=== PATIENT | male | born 1970 | race Caucasian/White ===

== ENCOUNTER 2023-12-10 10:16 | Observation (INO) ==
--- NOTE | 2023-11-11 16:08 | PAT Medication Instructions ---
Medication Instructions Date of Service November 11, 2023 Home Medications atorvastatin 10 mg tablet 10 mg PO QAM celecoxib 200 mg capsule (Celebrex) 200 mg PO QAM losartan 50 mg tablet 50 mg PO QAM pantoprazole 40 mg tablet,delayed release 40 mg PO QAM ASK your surgeon for instructions celecoxib 200 mg capsule (Celebrex) 200 mg PO QAM DO NOT take the morning of surgery losartan 50 mg tablet 50 mg PO QAM Take morning of surgery With a small sip of water, OTHERWISE NOTHING TO EAT OR DRINK AFTER MIDNIGHT: atorvastatin 10 mg tablet 10 mg PO QAM pantoprazole 40 mg tablet,delayed release 40 mg PO QAM Other Notes If you have any questions please call us at [phone] or [phone] or [phone] or [phone]
--- NOTE | 2023-11-15 10:04 | Anesthesiology Consultation ---
Date of Service November 15, 2023 Assessment & Plan (1) Encounter for pre-operative examination: Chart Review Chart Review: Acceptable Risk for Surgery and Patient seen in Pre Admission Testing Per patient- 5-6 beers/evening Pt currently scheduled as 23 hours observation. If surgeon decides to change patient to Same Day Joint, patient would be acceptable risk for TKA, pending patient is motivated, has good support and surgeon's office completes [facility] preop requirements (Discussed with Dr. Mcgill). Per PAT appt on 11/15/23, no recent illness/disease exposures, illness related symptoms, or recent illness/disease positive tests. Will leave to surgeon's discretion if preop Covid testing needed Teaching & Discussion Pre-Anesthesia Teaching/Discussion Notes: Instructed NPO after midnight before surgery,except medications with 15 cc of water. Medication instructions provided according to the PAT guidelines. History Surgery Operation Date: 12/10/23 12:30 Proposed Procedures p Left Total Knee Arthroplasty - Domenic Duran MD Height/Weight Height: 5 ft 11 in Weight: 84.4 kg Allergies Allergy/AdvReac Type Severity Reaction Status Date / Time MELISSA Inhibitors Allergy Severe Cough Verified 11/11/23 15:10 Medications Home Medications Medication Instructions Recorded Confirmed Last Taken atorvastatin 10 mg tablet 10 mg PO QAM 11/07/23 11/11/23 Unknown celecoxib 200 mg capsule (Celebrex) 200 mg PO QAM 11/07/23 11/11/23 Unknown losartan 50 mg tablet 50 mg PO QAM 11/07/23 11/11/23 Unknown pantoprazole 40 mg tablet,delayed 40 mg PO QAM 11/07/23 11/11/23 Unknown release Past Medical History Medical History GERD (gastroesophageal reflux disease) well controlled and stable with Protonix High cholesterol Hypertension Left knee DJD Exercise / Class Metabolic Activity II 4-5 Yardwork/Stairs/Walk up hill (one flight of stairs - no chest pain or SOB ) Past Surgical History Surgical History History of ankle surgery right History of back surgery laser spinal surgery low back, 5 years ago Past Anesthesia History No Hx of Anesthesia Complications (with exception to mild constipation post op ) and No Family Hx of Anesthesia Complications History of PONV No Hx of PONV and No Hx of Motion Sickness Social History Smoking Status: Never smoker Do You Dip or Chew Tobacco: Yes (1.5 cans per day- advised) Hx Alcohol Use: Yes Alcohol type: beer alcohol intake frequency: 0-2 drinks per day (5-6 beer /day (usually in the evening after work)) Hx Substance Use: No substance use type: does not use Review of Systems - Occ extra heart beats - occurs every few months- lasts seconds- no issues x six months - Hx of snoring- no hx of sleep study Patient denies chest pain, shortness of breath, dyspnea on exertion, cough, wheezing. No hx of seizures, stroke, [place]. No hx of blood clots or blood transfusions Physical Exam Vital Signs VITALS BP 146/80 P 82 TEMP 98.5 SP02 97% RESP 16 Constitutional no acute distress ENMT Mouth: no TMJ clicking Thyromental Distance: > or= 3.5 Finger Breadths (3.5) Mallampati Class: II Neck neck extension not limited Respiratory normal respiratory effort; no respiratory distress Auscultation: lungs clear to auscultation bilaterally; no wheezes Cardiovascular Rate/Rhythm: regular rate and regular rhythm Heart Sounds: no murmur Vessels: no carotid bruit Musculoskeletal Spine: no pain with cervical ROM Extremities: extremities normal to inspection Psychiatric Orientation: alert Lab Results Anesthesia Preop Results Results Anesthesia Widget: WBC 5.89 K/ul (4.8-10.8) 11/15/23 Hgb 13.3 g/dl (14.0-18.0) L 11/15/23 Hct 39.9 % (42.0-52.0) L 11/15/23 Plt 223 K/uL (130-400) 11/15/23 Na 141 mmol/L (136-145) 11/15/23 K 4.6 mmol/L (3.5-5.1) 11/15/23 Cl 106 mmol/L (98-107) 11/15/23 CO2 28 mmol/L (21-32) 11/15/23 BUN 17 mg/dl (6-23) 11/15/23 Creat 1.14 mg/dl (0.6-1.4) 11/15/23 Glucose Level 91 mg/dl (70-99(Fasting)) 11/15/23 PT 10.7 Seconds (9.0-12.0) 11/15/23 PTT 27 Seconds (21-31) 11/15/23 INR 1.0 (0.9-1.1) 11/15/23 Blood Type AB Positive 11/15/23 Antibody Screen NEGATIVE 11/15/23 Testing Electrocardiogram Date: 11/15/23 Findings: + NSR @ (76bpm) Normal EKG per cardio Chest X-Ray Date: 11/15/23 Findings: + NAD FINDINGS: Lung volumes are normal. Lungs are clear. There is no pneumothorax or pleural effusion. Cardiac size is normal. Mediastinal contours are normal. There is no evidence for pulmonary edema
--- NOTE | 2023-12-07 08:50 | History & Physical Report ---
Date of Service December 07, 2023 Assessment & Plan (1) Left knee DJD: 53-year-old gentleman with history of 2 knee arthroscopies in the past with advanced medial compartment arthritis. He is failed conservative treatment and symptoms progressed over the past year. He would like to have his knee fixed. He is having difficulty working the way it is. Plan: Will take him to the operating room and do a left knee replacement. The risks Mente this procedure plan the patient clued but not limited to DVT PE deat h infection neurological injury vascular bleeding palm pain limb range of motion test is fairly with symptoms incomplete relief of symptoms excetra. The patient understands and desires to proceed. Informed consent was obtained. Hopefully we can get a little bit better knee motion and get some of the stiffness that is needed to. He is aware that his age he may need this revised in the future. Will plan on DVT prophylaxis including thigh-high teds, SCDs, aspirin twice a day. He is planning to stay in the hospital overnight and hopefully discharge postop day 1. His can assist in his care. He does have significant alcohol history we may need to use DVT prophylaxis as well. History of Present Illness Chief Complaint: . Left knee pain. Primary Care Provider: Lior Ortiz DO . Patient is a 53-year-old gentleman who presents for surgical treatment of his left knee. Is got a long history of a left knee pain and discomfort. He has a history of about 2 knee arthroscopies once in the s and once in the early done in [place]. After over the past year or so he has developed increased pain discomfort in his knee. His work requires him to do a lot of standing and has had increasing pain and difficulty doing this prickly over the past year. Pain is mostly medial but some global pain. Takes Celebrex with minimal relief. He has had steroid shots which do not help for very long. He is ready to have his knee fixed. It hurts and it stiff. Allergies Allergy/AdvReac Type Severity Reaction Status Date / Time MELISSA Inhibitors Allergy Severe Cough Verified 11/11/23 15:10 Home Medications Medication Instructions Recorded Confirmed Type atorvastatin 10 mg tablet 10 mg PO QAM 11/07/23 11/11/23 History celecoxib 200 mg capsule (Celebrex) 200 mg PO QAM 11/07/23 11/11/23 History losartan 50 mg tablet 50 mg PO QAM 11/07/23 11/11/23 History pantoprazole 40 mg tablet,delayed 40 mg PO QAM 11/07/23 11/11/23 History release Past Med/Surg History Medical History GERD (gastroesophageal reflux disease) well controlled and stable with Protonix High cholesterol Hypertension Left knee DJD Surgical History History of ankle surgery right History of back surgery laser spinal surgery low back, 5 years ago Social History Smoking Status: Never smoker Tobacco Type: Smokeless Tobacco (Dip or Chew) Second Hand Exposure: No; Do You Dip or Chew Tobacco: Yes (1.5 cans per day- advised); Hx Alcohol Use: Yes Alcohol type: beer Hx Substance Use: No Preferred Language: Wolof Grocery Checker Required: No Beliefs That Will Affect Care: None Current Living Situation: Spouse Feels Safe at Home: Yes Assistive Devices: Glasses Review of Systems All systems reviewed & are unremarkable except as noted in HPI & below. Physical Exam . Physical examination reveals patient ambulates independently. Got slight varus alignment to his knee. Walks with just a little limp. He does have a varus thrust with weightbearing. Got bony hypertrophy medially. He is tender with medial joint line. Range of motion about 5 degrees show full extension to about 110 degrees of flexion. His knee is fairly stiff. Is got no particular pain with hip motion. Constitutional WD/WN, vitals as above Neck trachea midline, no thyromegaly Respiratory normal respiratory effort, lungs clear to auscultation Cardiovascular RRR, no murmur, no edema Gastrointestinal (Abdomen) normal bowel sounds, soft, nontender, no hepatosplenomegaly Results & Data Results & Data Laboratory Results . Diagnostic Findings . X-rays left knee were reviewed. Shows advanced medial compartment arthritis. He is got essentially complete loss of his medial joint space on the 40 degree flexion films. Not quite as bad on full extension films. Is got osteophytes primarily medial. A little bit of tibiofemoral subluxation. PG Care Time/CCT Total # of Minutes Spent Total Time Spent with Patient: Total time spent is greater than 50% in coordination of care (as documented) at patient's floor/unit and/or counseling patient: Coding Level of Care Code None Diagnoses Left knee DJD M17.12
[~2023-12-10 10:16] MED LIST: BUPIVACAINE 0.5 % 5 MG/1 ML PF 10ML VIAL ONE; ROPIVACAINE 0.5% 5 MG/ML 30 ML VIAL ONE
[2023-12-10] MEDS ORDERED: BUPIVACAINE 0.25% PF 30 ML VIAL ONE (10:39)
[2023-12-10] MEDS ORDERED: DEXAMETHASONE SOD INJ 4 MG/ML VIAL ONE (10:39)
[2023-12-10] MEDS ORDERED: EPINEPHrine INJ 1 MG/ML AMP ONE (10:39)
--- NOTE | 2023-12-10 10:53 | History & Physical Bridge Note ---
Date of Service December 10, 2023 History & Physical Bridge Note I have examined the patient, reviewed the History & Physical and in the interval since the performance of the History & Physical I have noted the following changes of clinical significance: no changes noted
[2023-12-10] MEDS: ACETAMINOPHEN 500 MG TAB PO SCH ×2 (11:09→19:47)
[2023-12-10] MEDS: FAMOTIDINE 20 MG TAB PO SCH (11:10)
[2023-12-10] MEDS: METOCLOPRAMIDE HCL 10 MG TABLET PO SCH (11:10)
[2023-12-10] MEDS: CeleBREX 200 MG CAP PO SCH (11:10)
[2023-12-10] MEDS: dexAMETHasone**PF** 10 MG/ML VIAL IV SCH (11:10)
[2023-12-10] MEDS: LR 60ML/HR IV SCH (11:12)
[2023-12-10] MEDS: LR 500ML BOLUS, THEN 15ML/HR IV SCH (11:12)
[2023-12-10] MEDS ORDERED: PROMETHAZINE HCL 6.25 MG in SODIUM CHLORIDE 0.9% 50 ML IV PRN (11:13)
[2023-12-10] MEDS ORDERED: ATROPINE SULFATE 0.1 MG/ML 10ML SYR IV PRN (11:13)
[2023-12-10] MEDS ORDERED: ONDANSETRON INJ 2 MG/ML 2 ML VIAL IV PRN ×2 (11:13→15:36)
[2023-12-10] MEDS ORDERED: ePHEDrine sulfate 50 MG/ML AMP IV PRN (11:13)
[2023-12-10] MEDS ORDERED: fentaNYL citrate PF 100 MCG/2 ML VIAL IV PRN (11:13)
[2023-12-10] MEDS: Scopolamine 1 MG TDSY TD SCH (11:16)
[2023-12-10] MEDS ORDERED: MIDAZOLAM HCL 1 MG/ML 2ML VIAL ONE ×2 (11:46→13:49)
[2023-12-10] MEDS ORDERED: fentaNYL citrate PF 100 MCG/2 ML VIAL ONE (11:46)
[2023-12-10] MEDS: ceFAZolin 2000MG 2,000 MG/15 ML SYR IV SCH ×2 (12:43→19:57)
[2023-12-10] MEDS ORDERED: KETAMINE HCL INJ 50 MG/ML 10 ML VIAL ONE (12:55)
[2023-12-10] MEDS ORDERED: GLYCOPYRROLATE 0.2 MG/ML VIAL ONE (13:08)
[2023-12-10] MEDS ORDERED: ONDANSETRON INJ 2 MG/ML 2 ML VIAL ONE (13:08)
[2023-12-10] MEDS ORDERED: PROPOFOL IV EMULSION 10 MG/ML 20 ML VIAL IV ONE ×4 (13:08→14:11)
[2023-12-10] MEDS: TRANEXAMIC ACID 1,000 MG **IV Intra-op IV SCH (13:39)
[2023-12-10] MEDS: ROPIV 0.5% 246mg, Ketorolac 30mg, EPINEPHrine 0.5mg in NSS INFIL SCH (13:43)
[2023-12-10] MEDS: ORTHO JOINT ANESTHETIC ONE (14:04)
--- NOTE | 2023-12-10 14:50 | Operative Report ---
PG Post Operative Report Pre & Post Diagnosis Operation Date: 12/10/23 12:30 Pre-Op Diagnosis: Degenerative Joint Disease Left Knee Post-Op Diagnosis: Degenerative Joint Disease Left Knee I identified the patient and participated in the time-out.: Yes Procedure Operation Date: 12/10/23 12:30 Actual Procedures p Left Total Knee Arthroplasty(Left) - Domenic Duran MD Surgeon Domenic Duran MD Manufacturing Engineer Andrea Perez PA-C Estimated Blood Loss 50 Findings Consistent with Post-Op Diagnosis Operative findings reveal advanced left knee DJD. He had extensive grade 4 [id number] disease of the medial compartment and some spotty grade 4 changes of patellofemoral compartment. Had a varus deformity to his knee. Moderate- sized knee effusion. Specimens Left knee sent for pathology. Anesthesia Type Spinal MAC Complications none Disposition Accompanied Patient To Recovery: No Indications Patient is a 53-year-old gentleman has had a long history of left knee pain discomfort that is gradually gotten worse over time. He has a history of 2 knee arthroscopies in the past. Is been through extensive conservative treatment which became less successful over time. X-rays show advanced medial compartment arthritis with some tibiofemoral subluxation. Patient indicated for surgical management. Description of Procedure Operative implants consist of: 1 Biomet Vanguard size 75 left posterior stabilized femoral component. 2. Biomet size 83 tibial tray. 3. 10 mm posterior stabilized polyethylene insert. 4. 34 x 8-1/2 all poly patella. The patient was taken to the operating, identified, placed on the operating table in the supine position. All contact areas were appropriately padded. IV antibiotics tried by anesthesia team. A spinal anesthetic and adductor canal block had provided holding area. A left thigh tourniquet was then placed. The left lower extremities then prepped and draped in usual sterile fashion. The left leg was elevated and exsanguinated with use of an Esmarch and the tourniquet was placed at 300 mmHg. An anterior approach left knee was then performed to longitudinal incision centered over the patella. Sharp dissection was carried through subcutaneous tissue down the extensor mechanism. Medial parapatellar arthrotomy incision was made. Some subperiosteal dissection was carried out medially. The fat pad was resected from Neath patella tendon. Lateral patellofemoral ligament was released. Patella subluxated laterally knee was flexed. The osteophytes taken off distal femur. The ACL and PCL released from distal femur and the tibia subluxated anteriorly. The external tibial alignment jig was then placed in the interface the tibia and adjusted 14 mm medially. Proximal tibial cut was made to move out a millimeter bone from most deficient aspect the medial tibial plateau. The tibia sized to a size 83. Attention drawn the femur. The distal femur was entered with a sharp drill. Intramedullary canal was suction. A left 6 degree valgus cutting guide was placed. The distal femoral cutting block was pinned in place. Distal femoral cut was made take an additional 3 mm of bone off distal femur. The femur was then sized to a size 75. The AP cutting block was pinned parallel to the epicondylar axis which was 5 degrees of external rotation. The anterior cut, anterior chamfer, posterior cut, posterior chamfer cuts were made. The box cutting guide was placed in the just slight lateral and the box cut was made. The knee was flexed. The remnants of the medial and lateral menisci were excised. The osteophytes taken off the posterior aspect of the femur. A trial femoral component was placed for the tibial tray was pinned Joann external rotation and the drill and stem punch used to create defect in proximal tibia for the tibial tray. Knee was then trialed and 10 mm insert fit most appropriately. Attention drawn the patella. The patella is cleaned of all soft tissues. Patella thickness measured 23 mm in thickness was cut down to 14. Was sized to a size 34 patella. The lug holes were drilled for the 34 patella. The lateral osteophyte was removed. Patella button was placed. Knee was taken through range of motion and the patella tracked nicely with no thumbs test. Attention drawn to placing permanent components. Nupathe all trial components were removed. Bone plug was placed in the distal femur limit blood loss. A double batch Palacos G cement was mixed. A Biomet Vanguard size 75 left posterior stabilized femoral component, a size 83 tibial tray, a 10 mm post stabilized polyethylene insert, and a 34 x 8 and half all poly patella then cemented in place. The knee was brought into full extension until the cement hardened. Final cement check was then performed. The pericapsular tissues were injected with total of 100 cc of Ortho mix. Patient did receive 1 g tranexamic acid. The tourniquet was then let down for final tourniquet time 50 minutes. Hemostasis assured use electrocautery. The wound was once again irrigated. Extensor Metros then closed with combination 1 PDS suture #1 Vicryl suture in [id number] fashion. Extensor mechanism checked and found to be intact and subcutaneous tissue then closed with 2 Dexon suture in buried fashion skin was closed skin annette. Leg was then cleaned and dried and sterile dressing was Xeroform, 4 fours, sterile cast padding, James bandage were applied. The patient then transferred to the recovery in stable condition. Patient tolerated procedure well and there were no complications. Andrea Perez, my physician personal care assistant, was present for the entire procedure. His assistance was essential and required for appropriate patient positioning, prepping and draping, surgical exposure, performing the technical details of the operation, placement the implants, closure of the wound, and placement of the sterile bandage. I attest to the content of the Intraoperative Record and any orders documented therein. Any exceptions are noted below.
--- NOTE | 2023-12-10 15:17 | XRay Report ---
XR knee LT 1 or 2V routine CLINICAL HISTORY: Postoperative evaluation. COMPARISON: Left knee radiographs November 07, 2023. FINDINGS: Alignment of the total left knee arthroplasty is anatomic. There is no periprosthetic frac ture or unexpected radiopaque foreign body. There are skin annette. IMPRESSION: Expected findings following total left knee arthroplasty. ACT 112: Negative or not required by law. Electronically signed by: Alfred Manley M.D. 12/10/2023 3:16 PM
[2023-12-10] MEDS ORDERED: METOCLOPRAMIDE HCL INJ 5 MG/ML 2 ML VIAL IV PRN (15:36)
[2023-12-10] MEDS ORDERED: HYDROmorphone INJ 0.5 MG/0.5 ML SYR IV PRN (15:36)
[2023-12-10] MEDS ORDERED: MAGNESIUM HYDROXIDE SUSP 30 ML UDC PO PRN (15:36)
[2023-12-10] MEDS ORDERED: diphenhydrAMINE Capsule 25 MG CAP PO PRN (15:36)
[2023-12-10] MEDS ORDERED: ALUMINUM/MAGNESIUM SUSP 30 ML UDC PO PRN (15:36)
[2023-12-10] MEDS ORDERED: bisacodyL 10 MG SUPP PR PRN (15:36)
[2023-12-10] MEDS ORDERED: chlordiazePOXIDE HCl 25 MG CAP PO PRN (15:36)
[2023-12-10] MEDS ORDERED: NALOXONE HCL 0.4 MG/1 ML VIAL/CARP IV PRN (15:36)
[2023-12-10] MEDS: SODIUM CHLORIDE 0.9% 1,000 ML IV SCH (15:45)
[2023-12-10] MEDS: Scopolamine CHECK PATCH PLACEMENT SCH (15:46)
--- NOTE | 2023-12-10 15:53 | Anesthesiology Progress Note ---
Date of Service December 10, 2023 Anesthesia Post Procedure Vital Signs Vital Signs: Temp Pulse Pulse Resp BP BP Pulse Ox 12/10/23 15:20 75 18 124/72 97 12/10/23 15:05 36.7 C 73 15 112/65 94 12/10/23 14:55 86 19 123/70 93 12/10/23 14:45 96 H 21 121/68 95 12/10/23 14:35 81 13 114/65 94 12/10/23 14:29 36.4 C L 108 H 14 106/75 98 12/10/23 10:56 36.8 C 65 20 167/88 H 99 O2 Del Method O2 Flow Rate 12/10/23 15:20 Room Air 12/10/23 15:05 Room Air 12/10/23 14:55 Room Air 12/10/23 14:45 Room Air 12/10/23 14:35 Room Air 12/10/23 14:29 Oxymask 4 12/10/23 10:56 Room Air Transfer of Care Handoff Completed per policy Notes Mental Status: alert / awake / arousable Patient Amnestic to Procedure: Yes Nausea / Vomiting: adequately controlled Pain: adequately controlled Airway Patency, RR, SpO2: stable & adequate BP & HR: stable & adequate Hydration State: stable & adequate Neuraxial Anesthesia: was administered and sensory block is resolving Anesthetic Complications: no major complications apparent and Pt Satisfied with anesthetic care
[2023-12-10] MEDS: ASCORBIC ACID 500 MG TAB PO SCH (16:51)
[2023-12-10] MEDS: KETOROLAC 30 MG/ML VIAL IV SCH (16:51)
[2023-12-10] MEDS: ASPIRIN 81 MG ECTAB PO SCH (19:48)
[2023-12-10] MEDS: SENNA 8.6 MG TAB PO SCH ×2 (19:49)
[2023-12-10] MEDS: oxyCODONE HCL IR 5 MG TAB (IMMEDIATE RELEASE) PO PRN (19:57)
[2023-12-10] MEDS: TRANEXAMIC ACID / 0.7% NACL 1,000 MG/100 ML BAG IV SCH (19:57)
[2023-12-10] MEDS: DOCUSATE SODIUM 100 MG CAP PO SCH (21:26)
[2023-12-11] MEDS: dexAMETHasone 10 MG in SYRINGE 0 ML IV SCH (07:37)
[2023-12-11] MEDS: THIAMINE HCL 100 MG TAB PO SCH (07:39)
[2023-12-11] MEDS: ATORVASTATIN 10 MG TAB PO SCH (07:39)
[2023-12-11] MEDS: FOLIC ACID 1 MG TAB PO SCH (07:39)
[2023-12-11] MEDS: LOSARTAN POTASSIUM 50 MG TAB PO SCH (07:39)
[2023-12-11] MEDS: PANTOprazole 40 MG TAB PO SCH (07:40)
[2023-12-11] MEDS: TAMSULOSIN HCL 0.4 MG CAP PO SCH (07:41)
[2023-12-11] MEDS: MULTIVITAMIN TAB PO SCH (07:41)
[2023-12-11 08:04] LABS: Hematocrit (blood only) 33.6 % (42.0-52.0); Hemoglobin 11.5 g/dl (14.0-18.0); Mean Corpuscular Hemoglobin 31.2 pg (25.0-34.0); Mean Corpuscular Hgb Conc 34.2 g/dL (32.0-36.0); Mean Corpuscular Volume 91.1 fL (80.0-100.0); Platelet Count 246 K/uL (130-400); RDW Coefficient of Variation 13.3 % (11.5-14.5); RDW Standard Deviation 44.2 fL (36.4-46.3); Red Blood Count 3.69 M/uL (4.70-6.10); White Blood Count 14.33 K/ul (4.8-10.8)
[2023-12-11 08:16] LABS: BUN Creatinine Ratio 12.7 (10-20); Calcium 8.7 mg/dl (8.6-10.3); Creatinine Clr Calc Pharmacy 84.5 ml/min; Est GFR (African American) 95.5 ml/min; Est GFR (Non-African American) 82.4 ml/min; Potassium 4.3 mmol/L (3.5-5.1)
--- NOTE | 2023-12-11 11:18 | Orthopedic Progress Note ---
Date of Service December 11, 2023 Assessment & Plan (1) Status post left knee replacement: Overall, he is doing quite well today with good pain control to the left knee. He will work with physical therapy later this morning to work on ambulation and range of motion exercises. He is on aspirin for DVT prophylaxis. He can be discharged later this morning pending formal physical therapy evaluation and recommendations. He will follow-up with Dr. Duran in 2 weeks for postoperative management. Dominguez Szymanski was seen and evaluated this morning resting comfortably in no apparent distress. He notes that his pain is well-controlled to the left knee this m orning. He has been up and out of bed with no significant issues. He has yet to work with physical therapy this morning. He denies any other concerns today. Review of Systems All systems reviewed & are unremarkable except as noted in HPI & below. Physical Exam . On physical examination of the left knee, dressings are clean, dry, intact. His leg is out in full extension. He has active plantarflexion dorsiflexion of the left ankle. +2 DP and PT pulses. Less than 2-second capillary refill. Normal sensation. Neurovascular intact. Results & Data Results & Data Laboratory Results . Diagnostic Findings . Postoperative x-rays of the left knee show prosthesis to be in anatomical alignment with no signs of fracture complication or loosening. PG Care Time/CCT Total # of Minutes Spent Total Time Spent with Patient: Total time spent is greater than 50% in coordination of care (as documented) at patient's floor/unit and/or counseling patient: Coding Level of Care Code 82763 Post Operative Follow-Up Diagnoses Status post left knee replacement Z96.652
--- NOTE | 2023-12-11 11:20 | Discharge Summary ---
Date of Service December 11, 2023 Admission HPI (Per Admitting) . Patient is a 53-year-old gentleman who presents for surgical treatment of his left knee. Is got a long history of a left knee pain and discomfort. He has a history of about 2 knee arthroscopies once in the s and once in the early done in [place]. After over the past year or so he has developed increased pain discomfort in his knee. His work requires him to do a lot of standing and has had increasing pain and difficulty doing this prickly over the past year. Pain is mostly medial but some global pain. Takes Celebrex with minimal relief. He has had steroid shots which do not help for very long. He is ready to have his knee fixed. It hurts and it stiff. Admission Exam (Per Admitting) . Physical examination reveals patient ambulates independently. Got slight varus alignment to his knee. Walks with just a little limp. He does have a varus thrust with weightbearing. Got bony hypertrophy medially. He is tender with medial joint line. Range of motion about 5 degrees show full extension to about 110 degrees of flexion. His knee is fairly stiff. Is got no particular pain with hip motion. Principal Diagnosis Same as "Discharge Diagnosis" noted below under Discharge Instructions. Discharge Exam . On physical examination of the left knee, dressings are clean, dry, intact. His leg is out in full extension. He has active plantarflexion dorsiflexion of the left ankle. +2 DP and PT pulses. Less than 2-second capillary refill. Normal sensation. Neurovascular intact. Discharge Data Procedures Performed Operation Date: 12/10/23 12:30 Actual Procedures p Left Total Knee Arthroplasty(Left) - Domenic Duran MD Ordered Studies 12/10/23 05:00 US - OR guided needle placemen Routine Hospital Course (1) Status post left knee replacement: On December 10, 2023 Stephon arrived at [facility] and underwent a left total knee arthroplasty performed by Dr. Duran with no complications. He had a spinal anesthetic. Postoperatively, he was started on aspirin for DVT prophylaxis and transferred to the general orthopedic floor in stable condition. His hospital course was uneventful. On postoperative day #1, his vital signs are stable and his pain was well-controlled. He participated well with physical therapy working on ambulation and range of motion exercises. He was then discharged home in stable condition. He will follow-up with Dr. Duran in 2 weeks for postoperative management. PG Care Time/CCT Total # of Minutes Spent Total Time Spent with Patient: Total time spent is greater than 50% in coordination of care (as documented) at patient's floor/unit and/or counseling patient: Discharge Plan Discharge Items Patient Disposition: Home - Home Health Services Reason For Visit: Degenerative Joint Disease Left Knee Discharge Diagnosis: Left Knee Replacement Activity: Per Instructions section Weightbearing: Full weightbearing Non-emergency contact: Surgeon Call non-emergency contact if: you have any medication questions Follow-up/Referrals: Lior Ortiz, [Primary Care Provider] - Diet: Regular Addtl Attending Provider Instructions: ACTIVITY RECOMMENDATIONS: Physical Therapy: * You will go to physical therapy three times each week for four to six weeks after your surgery in order to regain your knee range of motion and to retrain your knee to work properly. * It is just as important to make sure you are getting your knee perfectly straight as it is to regain your knee bend. * Taking a pain pill an hour before therapy can help you have a more productive and comfortable therapy session. Home Exercise: * You were shown a series of exercises (heel props, heel slides, etc.) in the hospital. Do these exercises three to four times each day including the exercises you were shown in physical therapy. Walking: * Get up and walk several times each day. For the first four weeks, try not to stand or walk for more than one hour at a time. If you do stand or walk for more than one hour, you will not hurt anything, but your knee and leg will likely swell. * As you feel comfortable, you may change from the walker or crutches to a cane and then to independent walking. MEDICATIONS: New Medicine: * You will likely be taking one or more of these medications: 1. Oxycodone - A quick and shorter-acting pain medication. Take one to two tablets every six hours to lessen your pain. 2. Aspirin - Thins your blood to lessen the chance of forming a blood clot. * The most common side effects of pain medicine and iron are nausea and constipation. If nausea or constipation is too much of a problem or if you have any questions about your new medicines or doses, call [facility] at . We will try to help you manage these issues. "VERY IMPORTANT TO READ AND REVIEW" Pain: * The immediate post-operative period after knee replacement surgery is often quite painful. * You are given a prescription for pain medicine. You should take it, as directed, when you need it, especially before physical therapy and before going to bed. Pain that interferes with sleep is very common and can last several months. * You will likely need pain medicine for the first four to six weeks. It will not stop all of the pain. The pain will lessen and as you feel better, you may change to milder pain medicine such as Tylenol. * The most common side effects of pain medicine are nausea and constipation, so don't take more than you need. SPECIAL CARE INSTRUCTIONS: TEDs/Elastic Stockings: * The white elastic stockings help limit swelling and prevent blood clots from forming in your legs. The more you wear them, the more they work. * Wear them for six weeks after knee replacement surgery and four weeks after partial knee replacement. Incision Site Care: * Remove dressing postoperative day 2 and then shower. Keep direct shower pressure off the incision site. * After showering, cover annette with dry gauze and change daily or more frequently if the dressing is getting saturated with drainage. * Use the LAUREN stockings to hold dressing in place. DO NOT apply tape on the skin. * May completely stop using bandage if wound is dry and no drainage * [place] are removed between 2 and 3 weeks post-op. If your follow-up appointment is made before 2 weeks, please have your appointment re- scheduled. It is too early to remove the annette. Prevention of Infection: * Take antibiotics one hour before any dental cleaning, dental work, urological procedure, gastrointestinal procedure or any invasive surgery in order to prevent your new joint from getting infected. * You may get the antibiotics from the doctor performing the procedure or you may call our office at [phone] before and we will call in a prescription to the pharmacy of your choice. Things to Watch For: * Drainage from the incision site that occurs more than one week after your surgery. * Severely increased knee/leg pain or swelling. * Increased redness at the incision site. * Fever above 102 degrees Fahrenheit. * Unusual chest pain or shortness of breath. * Unusual pain or burning with urination. Call [facility] at [phone] with any of the above problems or if you have any questions about your medicines or recovery. FOLLOW UP VISIT: Make an appointment to see your doctor for approximately two weeks after surgery for a progress check and staple removal by calling the office at [phone]. Pending Studies at Discharge: No Stand-Alone Forms: [facility], Smoking Cessation Medications and DC Order Prescriptions: Continued oxycodone 5 mg tablet 5 - 10 mg PO Q6 PRN (Reason: pain) Qty: 40 0RF Rx Instructions: Take as needed for pain ondansetron 4 mg tablet,disintegrating 4 mg PO Q8 PRN (Reason: nausea) Qty: 20 1RF Rx Instructions: Take as needed for nausea ketorolac 10 mg tablet 10 mg PO Q6 5 Days Qty: 20 0RF Rx Instructions: Take 4 times per day with food for 5 days to lessen pain and swelling. sennosides [Senokot] 8.6 mg tablet 8.6 mg PO BID 14 Days Qty: 28 0RF Rx Instructions: Take two times a day to prevent/treat constipation acetaminophen [Tylenol Extra Strength] 500 mg tablet 1,000 mg PO TID 30 Days Qty: 180 0RF Rx Instructions: Take 3 times per day to lessen pain. aspirin [Chandu Low Dose Aspirin] 81 mg tablet,delayed release (DR/EC) 81 mg PO BID 45 Days Qty: 90 0RF Rx Instructions: Take to prevent blood clots. tamsulosin [Flomax] 0.4 mg capsule 0.4 mg PO DAILY Qty: 7 0RF Rx Instructions: Begin night BEFORE surgery to prevent urinary retention cefadroxil 500 mg capsule 500 mg PO BID 7 Days Qty: 14 0RF Rx Instructions: Take 1 cap twice a day to prevent infection atorvastatin 10 mg tablet 10 mg PO QAM pantoprazole 40 mg tablet,delayed release (DR/EC) 40 mg PO QAM losartan 50 mg tablet 50 mg PO QAM Discontinued celecoxib [Celebrex] 200 mg capsule 200 mg PO QAM Discharge Orders: Discharge Order (Routine); Ordered 12/11/23 Ordered By: Jhoan Cain Admission Data Admit Date/Time: 12/10/23 14:41 Attending Provider: Domenic Duran Admit Provider: Roger,Domenic S. Primary Care Provider: Lior Ortiz Other Providers: [facility],Home Health Other Interventions: Discharge Summary Assessment (RN) Last Done: 12/11/23 10:45
== END 2023-12-11 11:31 | disposition home health service (06) | DRG 470 ==
LOC: ASU 10:16 → 3W 14:41 → INTOOBSV 14:41